=== PATIENT | male | born 1995 ===

== ENCOUNTER 2018-03-20 14:54 | Emergency (ER) | payer MEDICAID ==
[2018-03-20] MEDS ORDERED: Lidocaine 1% Inj (20ml) INFIL STA (15:14)
[2018-03-20 15:42] VITALS: RESP 20
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
[2018-03-20] MEDS ORDERED: Lidocaine 2% MPF (5 ml) Inj ONE (16:05)
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
[2018-03-20] MEDS ORDERED: Bacitracin 500 Units/gm Oint Foilpak UD ONE (16:51)
[2018-03-20 17:46] VITALS: BP 136/80; PULSE 66; TEMP 99
[2018-03-23 10:57] VITALS: O2SAT 100
== END 2018-03-20 17:48 | disposition home or self-care (01) ==
LOC: C.ER 14:54
DX: S01.512A Laceration without foreign body of oral cavity, initial encounter (principal); S01.81XA Laceration without foreign body of other part of head, initial encounter; Y04.0XXA Assault by unarmed brawl or fight, initial encounter